=== PATIENT | male | born 1990 | race Caucasian/White ===

== ENCOUNTER 2018-03-20 14:13 | Emergency (ER) ==
[2018-03-20 14:20] VITALS: BP 105/61; TEMP 99.7; BMI 20.9
--- NOTE | 2018-03-20 15:21 | CT ---
EXAM: CT of the abdomen pelvis without contrast History: Abdominal pain. Technique: Multiplanar CT images through the abdomen pelvis were obtained without the administration of IV contrast. Findings: Lung bases are clear. No acute osseous abnormalities. No discrete gallstones identified by CT. No renal stones and no hydronephrosis. No focal liver or s plenic lesions. No peripancreatic inflammation. Adrenal glands are unremarkable. Stomach is distend ed with fluid. Nondilated fluid filled loops of small bowel fluid seen within the colon. No bladder wall thickening. Prostate is not enlarged. No perirectal inflammation. The appendix is not well v isualized but there are no secondary signs of appendicitis. Small scattered mesenteric lymph nodes a re most likely reactive. No free air and no ascites. Impression: Mild gastroenteritis. No bowel obstruction
--- NOTE | 2018-03-20 15:25 | DI ---
EXAM: Two views of the chest. History: Cough. Findings: Heart size is normal. No focal consolidation. No appreciable pleural fluid and no pneumo thorax. No acute osseous abnormalities. Impression: No acute cardiopulmonary process
[2018-03-20] MEDS ORDERED: SODIUM CHLORIDE 1,000 ML IV STA (16:30)
[2018-03-20] MEDS ORDERED: LOMOTIL PO STA (16:30)
--- NOTE | 2018-03-20 16:35 | ED.PDOC ---
General ED Provider: Dr. VERONICA WHITTINGTON Chief Complaint: Nausea/Vomiting Stated Complaint: ABDOMINAL PAIN , VOMITING, DIARRHEA Time Seen by Physician: 14:17 (SEEN WITH JESSICA DEL REAL ) Mode of Arrival: Walk-In Information Source: Patient Exam Limitations: No limitations Nursing and Triage Documentation Reviewed and Agree: Yes Does patient meet sepsis criteria?: No System Inflammatory Response Syndrome: Not Applicable Sepsis Protocol: For patient's 13 years and over: Temp is 96.8 and below OR 101 and greater Pulse >90 BPM Resp >20/minute Acutely Altered Mental Status Are patient's symptoms suggestive of a new infection, such as: -Pneumonia -Skin, Soft Tissue -Endocarditis -UTI -Bone, Joint Infection -Implantable Device -Acute Abdominal Infection -Wound Infection -Meningitis -Blood Stream Catheter Infection -Unknown GI Complaint Exam - Abdominal Pain Complaint/Exam Onset: Gradual Duration: TODAY 4 AM Symptoms Are: Resolved Timing: Intermittent Initial Severity: Moderate Current Severity: None Location of Pain: Diffuse Radiates To: Denies: Chest, Back, Flank, LLQ, RLQ, Inguinal Character: Reports: Cramping Aggravating: Reports: Food Alleviating: Reports: None Associated Signs and Symptoms: Reports: Nausea, Vomiting, Diarrhea. Denies: Diaphoresis, Fever, Cough, Chest pain, Dizziness, Back pain, Constipation, Blood in stool, Dysuria, Urinary frequency, Decreased urine output, Decreased appetite, Discharge, Decreased activity AAA Risk Factors: Reports: None Cardiac Risk Factors: Reports: None Testicular Torsion Risk Factors: Reports: None Surgical Obstruction Risk Factors: Reports: None Related Surgical History: Reports: None Abdominal Findings: Present: None Differential Diagnoses: Appendicitis, Bowel Obstruction, Constipation, Gastroenteritis Review of Systems - Review Of Systems Constitutional: Reports: No symptoms Eyes: Reports: No symptoms Ears, Nose, Mouth, Throat: Reports: No symptoms Respiratory: Reports: No symptoms Cardiac: Reports: No symptoms GI: Reports: Abdominal pain, Diarrhea, Nausea, Poor appetite, Vomiting : Reports: No symptoms Musculoskeletal: Reports: No symptoms Skin: Reports: No symptoms Neurological: Reports: No symptoms Endocrine: Reports: No symptoms Hematologic/Lymphatic: Reports: No symptoms All Other Systems: Reviewed and Negative Past Medical History - Past Medical History Previously Healthy: Yes Endocrine: Reports: None Cardiovascular: Reports: None Respiratory: Reports: None Hematological: Reports: None Gastrointestinal: Reports: None Genitourinary: Reports: None Neuro/Psych: Reports: None Musculoskeletal: Reports: None Cancer: Reports: None - Surgical History General Surgical History: Reports: None - Family History Family History: Reports: None - Social History Smoking Status: Current every day smoker Hx Substance Use: No Alcohol Screening: Occasionally Physical Exam - Physical Exam Appearance: Well-appearing, No pain distress, Well-nourished Eyes: THEODORE, EOMI, Conjunctiva clear ENT: Ears normal, Nose normal, Oropharynx normal Respiratory: Airway patent, Breath sounds clear, Breath sounds equal, Respirations nonlabored Cardiovascular: RRR, Pulses normal, No rub, No murmur GI/: Soft, Nontender, No masses, Bowel sounds normal, No Organomegaly Musculoskeletal: Normal strength, ROM intact, No edema, No calf tenderness Skin: Warm, Dry, Normal color Neurological: Sensation intact, Motor intact, Reflexes intact, Cranial nerves intact, Alert, Oriented Psychiatric: Affect appropriate, Mood appropriate Interpretation - Radiology Interpretation Radiology Interpretation By: Radiologist Radiology Results: No acute changes (CHEST) Exam Interpreted: CXR Re-Evaluation - Re-Evaluation Time of Re-Evaluation: 16:35 (NO VOMITING OR DIARRHEA FEELS BETTER .) Status: Improved Vital Signs Stable: Yes Pain Level: 0 Appearance: NAD Lungs: Clear Skin: Warm and Dry Neuro: Alert and Oriented X3 CV: RRR Critical Care Note - Critical Care Note Total Time (mins): 0 Course - Course Hematology/Chemistry: 03/20/18 14:45 03/20/18 14:45 Orders, Labs, Meds: Lab Review 03/20/18 03/20/18 03/20/18 14:45 14:45 15:55 WBC 16.93 H RBC 5.11 Hgb 15.6 Hct 44.5 MCV 87.1 MCH 30.5 MCHC 35.1 RDW Coeff of Andre 12.3 Plt Count 199 Immature Gran % (Auto) 0.4 Neut % (Auto) 94.6 Lymph % (Auto) 1.8 L Wood % (Auto) 2.8 Eos % (Auto) 0.2 Baso % (Auto) 0.2 Immature Gran # (Auto) 0.1 Neut # (Auto) 16.0 H Lymph # (Auto) 0.3 L Wood # (Auto) 0.5 Eos # (Auto) 0.0 Baso # (Auto) 0.0 Sodium 138 Potassium 4.1 Chloride 102 Carbon Dioxide 28 Anion Gap 12.1 BUN 14 Creatinine 0.98 Estimated GFR (MDRD) 90.00 BUN/Creatinine Ratio 14.28 Glucose 106 H Calcium 9.5 Total Bilirubin 3.0 H AST 14 L ALT 18 Alkaline Phosphatase 75 Total Protein 7.2 Albumin 4.4 Globulin 2.8 Albumin/Globulin Ratio 1.57 Urine Color Yellow Urine Clarity Clear Urine pH 7.0 Ur Specific Jupiter 1.020 Urine Protein Trace Urine Glucose (UA) Negative Urine Ketones Trace Urine Blood Negative Urine Nitrite Negative Urine Bilirubin 1+ Urine Urobilinogen >=8.0 Ur Leukocyte Esterase Negative Ur Squamous Epith Cells Not present Urine Mucus 1+ Orders Category Date Time Status CBC W/ AUTO DIFF Stat LAB 03/20/18 14:45 Completed COMPREHENSIVE METABOLIC PANEL Stat LAB 03/20/18 14:45 Completed URINALYSIS C & S IF INDICATED Stat LAB 03/20/18 15:55 Completed Diphenoxylate HCl/Atropine [Lomotil] MEDS 03/20/18 16:30 Stat 2 tab PO ONCE STA SODIUM CHLORIDE 0.9% @ 1,000 MLS/HR(1,000ml) MEDS 03/20/18 16:30 Ordered Sodium Chloride 0.9% [Sodium Chloride] 1,000 ml IV BOLUS CHEST, 2 VIEWS PA & LAT Stat RADS 03/20/18 14:[address] ABDOMEN/PELVIS WO CONTRAST Stat RADS 03/20/18 14:37 Completed Medications Generic Name Dose Route Start Last Admin Trade Name Freq PRN Reason Stop Dose Admin Sodium Chloride 1,000 mls @ 1,000 mls/hr 03/20/18 16:30 Sodium Chloride IV 03/20/18 17:29 BOLUS STA Discontinued Medications Generic Name Dose Route Start Last Admin Trade Name Freq PRN Reason Stop Dose Admin Diphenoxylate HCl/Atropine 2 tab 03/20/18 16:30 Lomotil PO 03/20/18 16:31 ONCE STA Vital Signs: Temp Pulse Resp BP Pulse Ox 03/20/18 14:16 99.7 F H 112 H 16 105/61 98 Departure - Departure Time of Disposition: 16:35 Disposition: HOME SELF-CARE Discharge Problem: Nausea, Vomiting, Acute gastroenteritis Instructions: Gastroenteritis (ED) Condition: Good Pt referred to PMD for follow-up: Yes IPMP verified?: No Additional Instructions: Please call your Family Physician as soon as possible to schedule a follow-up appointment. Allergies/Adverse Reactions: Allergies Penicillins Adverse Reaction (Verified 03/20/18 14:15) Sulfa (Sulfonamide Antibiotics) Adverse Reaction (Verified 03/20/18 14:15) Home Medications: Ambulatory Orders 1 [No Reported Medications] 03/20/18
== END 2018-03-20 17:12 | disposition home or self-care (01) ==
LOC: ED 14:13
DX: K52.9 Noninfective gastroenteritis and colitis, unspecified (principal); F17.210 Nicotine dependence, cigarettes, uncomplicated
CPT/HCPCS: 36415; 80053; 81001; 85025; 96360; 99283